=== PATIENT | male | born 1980 ===

== ENCOUNTER 2020-09-26 06:51 | Emergency (ER) | payer SELFPAY ==
--- NOTE | 2020-09-26 07:24 | PC.NURSE ---
pt came in via ems at approx [phone] and per overnight staff left a few minutes after arriving, Melida/ANGELA went to the room to do an EKG and he refused, Margot overnight RN took report from EMS
== END 2020-09-26 07:27 | disposition left against medical advice (07) ==
PROVIDERS: Emergency Provider Emergency Medicine
DX: R07.9 Chest pain, unspecified (principal)